=== PATIENT | female | born 1970 | race African-American/Black ===

== ENCOUNTER 2016-12-26 12:00 | Inpatient (IN) | payer MEDICARE, OTHER ==
[~2016-12-26] VITALS: Ht 162.6 cm; Wt 92.1 kg
--- NOTE | ~2016-12-26 | PN ---
Unit #: [id number] #: [id number] Patient: GET WEN [id number] [facility] [address] [place] [address] [id number] MR#: [id number] NAME: GET WEN ROOM: [facility] Age: 46 Sex: F Admission Date: 12/26/2016 : 1970 Attending Physician: Shirin Neil M.D. Admitting Physician: Shirin Neil M.D. Primary Care Physician: Generic Doctor Not In System [facility] PROGRESS NOTES DATE OF SERVICE: 12/28/2016 SUBJECTIVE Ms. Fulton is a 46-year-old female with substance abuse and mood disorder, who was seen today and chart was reviewed and case was discussed with the staff. She has been anxious, withdrawn, and rather seclusive to herself. Meanwhile, she appears to be doing better than yesterday and appears to be coming out of the detox without any complications. She has been taking medication and tolerating them fairly well with no reported side effects. MENTAL STATUS EXAMINATION Middle-aged female who was casually dressed with fair personal hygiene, appears to be in no acute distress or discomfort. She was awake and alert with impaired attention and concentration. Her mood was anxious with a congruent affect. Her speech was slow and restricted in content. She denies any suicidal or homicidal ideations. Her insight and judgment remain slightly impaired. TREATMENT AND PLAN 1. We will continue on her current medications and treatment protocol. We will monitor her response to medications and make further adjustments as needed. 2. We will continue to follow up. Dictated by... Noah Beyer/jose TD: 12/31/2016 01:38 JOB #: [id number] Unit #: [id number] #: [id number] Patient: GET WEN [facility] PROGRESS NOTES Page 1 of 1 X Shirin Neil MD PROGRESS NOTE
--- NOTE | ~2016-12-26 | PN ---
Unit #: [id number] #: [id number] Patient: GET WEN [id number] [facility] [address] [place] [address] [id number] MR#: [id number] NAME: GET WEN ROOM: [facility] Age: 46 Sex: F Admission Date: 12/26/2016 : 1970 Attending Physician: Shirin Neil M.D. Admitting Physician: Shirin Neil M.D. Primary Care Physician: Generic Doctor Not In System [facility] PROGRESS NOTES SUBJECTIVE Ms. Fluton is a 46-year-old female, who was seen today and chart was reviewed, and case was discussed with the staff. Meanwhile, she has been cooperative with treatment recommendations and . MENTAL STATUS EXAMINATION Middle-aged female, who was casually dressed with fair personal hygiene, appears to be in no acute distress or discomfort. She was awake and alert on interaction with intact orientation. Her mood was anxious with a congruent affect. She denies any suicidal or homicidal ideations. Her insight and judgment remain slightly impaired. TREATMENT PLAN 1. We will continue her current medications and treatment protocol. We will monitor her response to medications and make further adjustments as needed. 2. We will continue to follow up. Dictated by... Noah Beyer/jose TD: 12/30/2016 22:49 JOB #: [id number] [facility] PROGRESS NOTES Page 1 of 1 X Shirin Neil MD PROGRESS NOTE
--- NOTE | ~2016-12-26 | HP ---
Unit #: [id number] #: [id number] Patient: GET WEN [id number] [place] [address] [id number] I MR#: [id number] NAME: GET WEN ROOM: 86 Age: 46 Sex: F Admission Date: 12/26/2016 : 1970 Attending Physician: Shirin Neil M.D. Admitting Physician: Shirin Neil M.D. Primary Care Physician: James Doctor Not In System HISTORY AND PHYSICAL HISTORY OF PRESENT ILLNESS Get is a 46 year old admitted to [facility] because of her abuse of opioids. PAST MEDICAL HISTORY 1. Long history of opioid abuse. 2. Obesity. 3. High blood pressure. 4. Hypercholesterolemia. 5. History of breast cancer. a. Lumpectomy. b. She is scheduled to start radiation in the next week. PAST SURGICAL HISTORY As above. ALLERGIES Sulfa (rash). SOCIAL HISTORY She denies cigarettes and alcohol. Admits to abusing at least 40 mg of some kind of opioid on a daily basis. FAMILY HISTORY Medically noncontributory. REVIEW OF SYSTEMS CONSTITUTIONAL: No fever or chills. HEENT: Denies any sore throat, ear pain or runny nose. CARDIOVASCULAR: Denies chest pain, irregular heart rhythm or palpitations. CHEST: Denies shortness of breath or cough. No hemoptysis. GASTROINTESTINAL: Denies nausea, vomiting, diarrhea or chronic constipation. ENDOCRINE: Denies history of increased thirst or urination. No recent significant weight loss or gain. GENITOURINARY: Denies dysuria, frequency, or hematuria. SKIN: Denies any rashes. HEMATOLOGIC: Denies history of increased bleeding or bruising. MUSCULOSKELETAL: Denies any hot, swollen joints. No generalized muscle pain. NEUROLOGIC: Denies problems with vision or speech. No frequent, severe headaches. No numbness, tingling or weakness in any extremities. Denies loss of bladder or bowel control. Unit #: [id number] #: [id number] Patient: GET WEN CURRENT MEDICATIONS 1. Detox protocol. 2. Lipitor 20 mg q.h.s. 3. Zyban SR 150 mg b.i.d. 4. Pepcid 20 mg b.i.d. 5. Celexa 40 mg daily. 6. Norvasc 5 mg daily. PHYSICAL EXAMINATION GENERAL: Alert, obese, in no apparent distress. VITAL SIGNS: Blood pressure 138/82, heart rate 80, respirations 16, temperature 98.6. WEIGHT: 203. HEIGHT: 5 feet 4 inches. SKIN: Warm and dry without rash or lesion. HEENT: Normocephalic. TMs not viewed. Oral and nasal passages clear. Conjunctivae clear. PERRLA. EOMs intact. NECK: Supple without lymphadenopathy or thyromegaly. HEART: Regular rate and rhythm without murmur. LUNGS: Clear. ABDOMEN: Soft, nontender. : Not done. EXTREMITIES: No evidence of cyanosis, clubbing or edema. Moves all without focal deficit. NEUROLOGICAL: Grossly within normal limits. Cranial Nerves: II: Visual vallecillo are intact. III, IV AND : Extraocular movements are intact. Pupils are equal, round and reactive to light. V: Facial sensation is grossly normal. VII: Facial movements and expression are normal. VIII: Auditory acuity grossly intact. IX, X: Uvula is midline. Phonation is normal. XI: Patient shrugs shoulders and turns head normally. XII: Tongue protrudes in the midline. Sensory and Motor Function: Sensory and motor sensation is grossly normal. Motor: moves all extremities well. Coordination: Gait is normal. Deep Tendon Reflexes: Intact. IMPRESSION Psychiatric admission. RECOMMENDATIONS PSYCHIATRIC: Per psychiatrist. MEDICAL: See no contraindication to participate in facility's activities. MEDICAL PROGNOSIS Good. MEDICAL CONDITION Stable. Dictated by... Ruth Hitchcock PGeorgieAGeorgie-Tori. for Noah Cornell/delaney Unit #: [id number] #: [id number] Patient: GET WEN TD: 12/26/2016 22:23 JOB #: [id number] HISTORY AND PHYSICAL Page 1 of 1 X Ruth Hitchcock HISTORY AND PHYSICAL
--- NOTE | ~2016-12-26 | PA ---
Unit #: [id number] #: [id number] Patient: GET WEN [id number] [facility] [address] [place] [address] [id number] I MR#: [id number] NAME: GET WEN ROOM: P186 Age: 46 Sex: F Admission Date: 12/26/2016 : 1970 Date of Assessment: 12/26/2016 Attending Physician: Shirin Neil M.D. Admitting Physician: Shirin Neil M.D. Primary Care Physician: Generic Doctor Not In System PSYCHIATRIC ASSESSMENT DATE OF SERVICE 12/26/2016. IDENTIFYING DATA Ms. Mcgrath is a 46-year-old single female, who is a resident of [place], [place], and was self-referred to the hospital on a voluntary basis. CHIEF COMPLAINT "I've been using pain pills." HISTORY OF PRESENT ILLNESS Ms. Fulton is a 46-year-old female, who came to the hospital with a COWS of 15 indicating significant opioid withdrawal symptoms, and she stated that "I've been using pain pills about 40 mg of oxycodone a day. I have cancer and I knew that I was starting to get addicted and I went 10 years sober and I kept going back to the doctor and getting more and I've been using pain pills for the last 8 months, last use was yesterday. I'm hurting, my muscles are hurting, yawning, sneezing, sweating, cold nausea. I was using crack cocaine before and I have never detoxed off opioids before and I used cocaine 10 years and alcohol 10 years and I was drinking heavy about 10 years ago. I still go to the meetings and I have told them what I'm going through and I do have a sponsor and I have a lot of family support and my daughter is very supportive. I get severely depressed and I did not get out of the bed and I have mood swings and I do from being sad to angry and for the past 30 days, it has gotten worse. I get verbally abusive to words and I do a lot of cursing and venting and throwing things and I don't want to be bothered with anyone and I isolate myself from people and I don't talk to anybody and I don't go anywhere and I have one friend that I talk to and a friend that I talk to have had feelings of hopelessness, but not suicidal. I just want to get better and back to myself without using the opioids. 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 I cannot help anybody if I'm not helped first. I sleep a lot and that is because I'm depressed. I just still lay in the bed, sleep on and off, drink a lot, but I don't eat a lot." She does endorse significant depression, anxiety, irritability, restlessness, feelings of hopelessness and helplessness, and suicidal ideations, and as such, a recommendation for inpatient level of care for safety and stabilization was made. SUBSTANCE ABUSE HISTORY Unit #: [id number] #: [id number] Patient: GET WEN The patient reports history of alcohol, cannabis, cocaine, and opioid abuse, and currently, opioids has been her drug of choice as she reports that she has not used any other drugs in the last 10 years, and currently, has been using 40 mg of oxycodone on a daily basis. PAST PSYCHIATRIC HISTORY The patient has had a history of psychiatric treatment for chemical dependency at [facility] in the past. Review of the medical records indicate that currently she is not seeing a psychiatrist, though has been prescribed Wellbutrin and Celexa for depression, but does not appear to be showing a therapeutic response to the medications primarily because of substance abuse issues. PAST MEDICAL HISTORY History of cancer, neuropathy, acid reflux disease, hypertension, and dyslipidemia. ALLERGIES Sulfa drugs. PERSONAL AND SOCIAL HISTORY A 46-year-old female, who reports that she is single, unemployed, and lives with brother and has fairly decent social support system. MENTAL STATUS EXAMINATION Middle-aged female, who was casually dressed with fair personal hygiene, appears to be in no acute distress or discomfort. She was awake and alert on interaction with intact orientation to time, place, and person. Her mood was anxious and depressed with a congruent affect. Her speech was slow and goal directed. She reports having suicidal ideation, but denies any homicidal ideations and also denies any auditory or visual hallucinations. Her insight and judgment remain significantly impaired. DIAGNOSTIC IMPRESSION Psychiatric: Opioid dependence, moderate, in acute withdrawals and major depressive disorder, recurrent, moderate, without psychotic features. Medical: History of cancer, neuropathy, acid reflux disease, hypertension, and dyslipidemia. Stressors: Moderate psychosocial stressors. TREATMENT PLAN 1. The patient has presented with a history of mood disorder and substance abuse and has been decompensating. We will recommend enrolling her into inpatient psychiatric and chemical dependency treatment program. We will start her on detox protocol. We will monitor her response and make further adjustments as needed. 2. Supportive therapy was provided to the patient. ESTIMATED LENGTH OF STAY 5 to 7 days. ABILITY TO HELP SELF Limited. WILLINGNESS TO HELP SELF The patient appears to be willing to help self. Unit #: [id number] #: [id number] Patient: GET WEN 1. Communicative. 2. Cooperative. PROBLEMS 1. Chronic dysphoric symptoms. 2. Chronic chemical dependency. 3. Poor social support system. DISCHARGE CRITERIA This will be contingent upon the patient's ability to show resolution of her depression and anxiety and her ability to stay safe and sober, particularly after discharge from the hospital. Dictated by... Shirin Neil M.D. NII/jose TD: 12/27/2016 18:15 JOB #: [id number] PSYCHIATRIC ASSESSMENT Page 1 of 1 X Shirin Neil MD X PSYCHIATRIC ASSESSMENT
--- NOTE | ~2016-12-26 | PN ---
Unit #: [id number] #: [id number] Patient: GET WEN [id number] [facility] [address] [place] [address] [id number] MR#: [id number] NAME: GET WEN ROOM: [facility] Age: 46 Sex: F Admission Date: 12/26/2016 : 1970 Attending Physician: Shirin Neil M.D. Admitting Physician: Shirin Neil M.D. Primary Care Physician: Generic Doctor Not In System [facility] PROGRESS NOTES DATE December 27, 2016 DISCUSSION Ms. Fulton is a 46-year-old female, with substance abuse and mood disorder, who was seen today and chart was reviewed and the case was discussed with the staff. The patient has been anxious, withdrawn, and rather seclusive to herself. Meanwhile, she has been cooperative with the treatment recommendations and she has been taking the medications and tolerating them fairly well with no reported side effects. MENTAL STATUS EXAMINATION Middle-aged female, who was casually dressed with fair personal hygiene and appears to be in slight distress and discomfort. She was awake and alert with impaired attention and concentration. Her mood was anxious with a congruent affect. The patient denies any suicidal or homicidal ideations. Her insight and judgment remain slightly impaired. TREATMENT PLAN We will continue her on her current medications and treatment protocol, and will monitor her response to the medications, and make further adjustments as needed. Dictated by... Noah Beyer/tonia TD: 12/29/2016 12:36 JOB #: [id number] Unit #: [id number] #: [id number] Patient: GET WEN [facility] PROGRESS NOTES Page 1 of 1 X Shirin Neil MD PROGRESS NOTE
[2016-12-27 13:27] LABS: ALBUMIN SERUM 4.2 g/dL (3.5-5.0); BILIRUBIN,TOTAL 0.2 mg/dL (0.2-2.0); BUN/CREATININE RATIO 11.25; CALCIUM SERUM 9.8 mg/dL (8.4-10.2); CREATININE SERUM 0.8 mg/dL (0.6-1.4); GLOM FILT RATE Estimated 101.8 mL/min (>60); POTASSIUM 4.4 mmol/L (3.5-5.1); PROTEIN TOTAL SERUM 7.4 g/dL (6.0-8.3)
[2016-12-27 14:18] LABS: BASOPHIL% 0.4 % (0-2.5); EOSINOPHIL# 0.2 X10e3 (0-0.7); EOSINOPHIL% 7.1 % (0.0-7.0); HEMATOCRIT 40.3 % (35.0-45.0); HEMOGLOBIN 12.8 gm/dL (12.0-16.0); LYMPHOCYTE# 0.5 X10e3 (1.0-3.5); LYMPHOCYTE% 23.3 % (17.0-45.0); MEAN CELL VOLUME 87.5 FL (83-96); MEAN CORPUSCULAR HEMOGLOBIN 27.7 PG (28-34); MEAN CORPUSCULAR HGB CONC 31.7 g/dL (30-36); MEAN PLATELET VOLUME 8.5 FL (6.5-11.5); MONOCYTE# 0.1 X10e3 (0-1.0); MONOCYTE% 3.5 % (3.0-12.0); NEUTROPHIL# 1.5 X10e3 (1.5-7.1); NEUTROPHIL% 65.7 % (40-75); PLATELET COUNT 303 X10e3 (140-420); RED CELL DISTRIBUTION WIDTH 16.8 % (11.0-15.5); WHITE BLOOD COUNT 2.3 X10e3 (4.0-10.5)
[2016-12-27 14:24] LABS: DIFF IND YES
[2016-12-27 16:11] LABS: PLATELET ESTIMATE NORMAL (NORMAL)
[2016-12-27 16:12] LABS: RBC NORMAL YES
[2016-12-29 12:35] LABS: URINE APPEARANCE CLEAR; URINE BILIRUBIN NEG (NEG); URINE BLOOD NEG (NEG); URINE COLOR YELLOW; URINE GLUCOSE NEG (NEG); URINE KETONE NEG (NEG); URINE LEUKOCYTE ESTERASE NEG (NEG); URINE NITRATE NEG (NEG); URINE PH 5.5 (5-8); URINE PROTEIN NEG (NEG); URINE UROBILINOGEN 0.2 MG/DL (NEG)
[2016-12-29 14:02] LABS: AMPHETAMINE NEG (NEG); BARBITURATES NEG (NEG); BENZODIAZEPINES NEG (NEG); COCAINE NEG (NEG); MARIJUANA NEG (NEG); OPIATES NEG (NEG); TRICYCLIC ANTIDEPRESSANTS NEG (NEG); U METHADONE NEG (NEG)
== END 2016-12-30 11:50 | DRG 897 ==
LOC: P1E 14:17
PROVIDERS: Psychiatry & Neurology Psychiatry
PROC: HZ2ZZZZ Detoxification Services for Substance Abuse Treatment (ICD-10-PCS; principal; 2016-12-26)
DX: F11.23 Opioid dependence with withdrawal (principal); F33.1 Major depressive disorder, recurrent, moderate; C50.919 Malignant neoplasm of unspecified site of unspecified female breast; I10 Essential (primary) hypertension; G62.9 Polyneuropathy, unspecified; K21.9 Gastro-esophageal reflux disease without esophagitis; E78.5 Hyperlipidemia, unspecified; Z88.2 Allergy status to sulfonamides
CPT/HCPCS: 80053; 80307; 81003; 85025; 86592